=== PATIENT | female | born 1955 | race Caucasian/White ===

== ENCOUNTER 2021-05-08 08:48 | Observation (INO) | payer MEDICARE, OTHER ==
[~2021-05-08] VITALS: Ht 147.3 cm; Wt 63.5 kg
[2021-05-08 09:36] LABS: HEMOGLOBIN 13.3 gm/dl (12.3-15.3); RED BLOOD COUNT 4.33 M/UL (4.00-5.10); WHITE BLOOD COUNT 6.5 K/UL (4.5-11.0)
[2021-05-08 09:55] LABS: BUN/CREATININE RATIO 15 (0-10)
[2021-05-08] MEDS ORDERED: HYDROCODON-ACE1 EAC6 PO (14:55)
[2021-05-08] MEDS ORDERED: ISOSORBIDE MON120 MG PO (14:56)
[2021-05-08] MEDS ORDERED: CRESTOR20 MG PO (14:56)
[2021-05-08] MEDS ORDERED: PROTONIX 40 MG40 M1 PO (14:56)
[2021-05-08] MEDS ORDERED: FLONASE 0.05% N16 GM (14:57)
[2021-05-08] MEDS ORDERED: LEVEMIR100 UNIT/1 SQ (15:01)
[2021-05-08] MEDS ORDERED: LISINOPRIL20 MG PO (15:02)
[2021-05-08] MEDS ORDERED: ROPINIROLE HCL2 MG PO (15:03)
[2021-05-08] MEDS ORDERED: SERTRALINE HCL50 MG PO (15:04)
[2021-05-08] MEDS ORDERED: TOPIRAMATE50 MG PO (15:04)
[2021-05-08] MEDS ORDERED: TENORMIN 50 MG50 MG PO (15:07)
[2021-05-09 03:40] LABS: RED BLOOD COUNT 4.25 M/UL (4.00-5.10); WHITE BLOOD COUNT 5.3 K/UL (4.5-11.0)
[2021-05-10 04:50] LABS: HEMOGLOBIN 12.8 gm/dl (12.3-15.3); RED BLOOD COUNT 4.13 M/UL (4.00-5.10); WHITE BLOOD COUNT 6.1 K/UL (4.5-11.0)
[2021-05-10] MEDS ORDERED: TENORMIN 50 MG50 MG PO (13:22)
[2021-05-10] MEDS ORDERED: ASPIRIN EC81 MG PO (13:22)
[2021-05-10] MEDS ORDERED: ATORVASTATIN CA20 MG PO (13:22)
== END 2021-05-10 15:57 | disposition home or self-care (01) ==
LOC: ER1 08:48 → CDU 10:27 → M/S 14:10
PROVIDERS: Physician Assistant; ADMIT Internal Medicine
PROC: 4A023N7 Measurement of Cardiac Sampling and Pressure, Left Heart, Percutaneous Approach (ICD-10-PCS; principal; 2021-05-10)
PROC: B2111ZZ Fluoroscopy of Multiple Coronary Arteries using Low Osmolar Contrast (ICD-10-PCS; 2021-05-10)
DX: R07.9 Chest pain, unspecified (principal); R55 Syncope and collapse; I77.1 Stricture of artery; I25.10 Atherosclerotic heart disease of native coronary artery without angina pectoris; I13.0 Hypertensive heart and chronic kidney disease with heart failure and stage 1 through stage 4 chronic kidney disease, or unspecified chronic kidney disease; E11.22 Type 2 diabetes mellitus with diabetic chronic kidney disease; N18.30 Chronic kidney disease, stage 3 unspecified; I50.9 Heart failure, unspecified; F32.9 Major depressive disorder, single episode, unspecified; J44.9 Chronic obstructive pulmonary disease, unspecified; E78.5 Hyperlipidemia, unspecified; Z20.822 Contact with and (suspected) exposure to COVID-19; Z86.73 Personal history of transient ischemic attack (TIA), and cerebral infarction without residual deficits; Z79.82 Long term (current) use of aspirin; Z88.0 Allergy status to penicillin; Z95.5 Presence of coronary angioplasty implant and graft; Z79.4 Long term (current) use of insulin; Z79.891 Long term (current) use of opiate analgesic; Z79.899 Other long term (current) drug therapy
CPT/HCPCS: ECHO; 36415; 71045; 78452; 80048; 80053; 82550; 82553; 82962; 83735; 83874; 84484; 85025; 85027; 93005; 93017; 93306; 93880; 96374; 96376; 99152; 99285; A9502; C1769; G0378; J1644; J2250; J2405; J2785; J3010; J7030; Q9965; U0002